=== PATIENT | male | born 1990 | race Caucasian/White ===

== ENCOUNTER 2024-11-29 09:25 | Outpatient (REF) | payer MEDICAID, SELFPAY ==
[2024-11-29 15:42] LABS: HCT 39.4 % (40.0-50.0); HGB 11.6 g/dL (13.5-17.5); MCH 24.9 pg (27.0-33.0); MCHC 29.4 % (32.0-36.0); MCV 85 fL (80-95); MPV 10.8 fL (8.0-11.0); Platelet Count 276 10^3/uL (130-400); RBC 4.66 10^6/uL (4.36-5.78); RDW 17.4 % (11.8-14.1); RDW-SD 53.5 fL; WBC 6.87 10^3/uL (4.4-10.8)
[2024-11-29 16:08] LABS: ALT 24 U/L (16-63); AST 31 U/L (15-37); Albumin 3.1 g/dL (3.4-5.0); Alkaline Phosphatase 80 U/L (46-116); Anion Gap 7.2 mmol/L (3-11); BUN 12 mg/dL (7-18); Bilirubin, Total 0.3 mg/dL (0.2-1.0); CO2 29.8 mmol/L (21.0-32.0); CREATININE 0.9 mg/dL (0.70-1.30); Calcium 9.1 mg/dL (8.5-10.1); Calculated LDL 77 mg/dL (<100); Chloride 102 mmol/L (98-107); Cholesterol 134 mg/dL (<200); Estimated GFR 115.65 (mL/min/1.73m2); Glucose 99 mg/dL (74-106); HDL Cholesterol 43 mg/dL (>or=40); Potassium 4.2 mmol/L (3.5-5.1); Sodium 139 mmol/L (136-145); Total Protein 8.8 g/dL (6.4-8.2); Triglyceride 73 mg/dL (<150)
== END 2024-11-29 09:26 | disposition home or self-care (01) ==
LOC: NCHCN 09:25
PROVIDERS: Visit Provider Internal Medicine
DX: E66.9 Obesity, unspecified (principal)
CPT/HCPCS: 80053; 80061; 85027

== ENCOUNTER 2025-03-28 07:21 | Outpatient (REF) | payer MEDICAID, SELFPAY ==
[2025-03-28 14:54] LABS: HCT 42.1 % (40.0-50.0); HGB 13.0 g/dL (13.5-17.5); MCH 25.8 pg (27.0-33.0); MCHC 30.9 % (32.0-36.0); MCV 84 fL (80-95); MPV 10.8 fL (8.0-11.0); Platelet Count 251 10^3/uL (130-400); RBC 5.03 10^6/uL (4.36-5.78); RDW 17.0 % (11.8-14.1); RDW-SD 52.0 fL; WBC 7.11 10^3/uL (4.4-10.8)
[2025-03-28 15:19] LABS: Hemoglobin A1C 5.4 % (<5.7)
== END 2025-03-28 07:22 | disposition home or self-care (01) ==
LOC: NCHCN 07:21
PROVIDERS: Visit Provider Nurse Practitioner Family
DX: R73.03 Prediabetes (principal)
CPT/HCPCS: 85027; 83036